=== PATIENT | male | born 2000 | race Caucasian/White ===

== ENCOUNTER 2020-07-27 18:08 | Emergency (ER) | payer BC, OTHER ==
[2020-07-27] MEDS ORDERED: HYDROcodone/Acetaminophen 5/325 mg Tablet ONE (20:30)
[2020-07-27] MEDS ORDERED: Ketorolac Tromethamine 30 MG/ML VIAL ONE (20:31)
== END 2020-07-27 20:45 | disposition home or self-care (01) ==
LOC: ERS 18:08
DX: S42.021A Displaced fracture of shaft of right clavicle, initial encounter for closed fracture (principal); F17.210 Nicotine dependence, cigarettes, uncomplicated; V89.2XXA Person injured in unspecified motor-vehicle accident, traffic, initial encounter; Y99.0 Civilian activity done for income or pay
CPT/HCPCS: 23500; 96374; J1885